=== PATIENT | female | born 1940 | race Caucasian/White ===

== ENCOUNTER 2017-03-19 13:23 | Inpatient (IN) | payer MEDICARE, BC ==
[2017-03-19 14:30] LABS: Bilirubin Negative (Negative); Blood, Urine Negative (Negative); Clarity CLEAR (Clear); Glucose, Urine (Dipstick) Negative (Negative); Leukocyte Trace (Negative); Nitrite Negative (Negative); Protein, Urine (Dipstick) Negative (Neg-Trace); Specific Gravity, Urine 1.006 (1.002-1.036); Urobilinogen 0.2 mg/dL (0.2-1.0); pH, Urine 7.5 (5.0-9.0)
[2017-03-19 14:32] LABS: Bacteria/HPF Rare-Few HPF (None Seen); Hyaline Casts/LPF 0-3 HYALINE CAST LPF (0-3 Hyaline); Pathc Cast-AUWi Flag 0.13 (0-2.49); RBC/HPF 0-3 HPF (0-3); WBC/HPF 0-3 HPF (0-3)
[2017-03-19 14:42] LABS: #Basophils 0.1 thou/uL (0.0-0.2); #Eosinphils 0.4 thou/uL (0.0-0.7); #Lymphocytes 1.8 thou/uL (1.20-3.40); #Monocytes 0.7 thou/uL (0.11-0.59); #Neutrophils 3.2 thou/uL (1.40-6.50); %Basophils 1.1 % (0.0-1.0); %Lymphocytes 29.7 % (21.0-51.0); %Monocytes 11.1 % (0.0-10.0); %Neutrophils 52.1 % (42.0-75.0); Hemoglobin 14.7 g/dL (12.0-16.0); Mean Corpuscular HGB CONC 32.9 g/dL (32.0-36.0); Mean Corpuscular Hemoglobin 31.9 pg (27.0-31.0); Mean Corpuscular Volume 96.7 fl (81.0-99.0); Mean Platelet Volume 7.5 fL (7.4-10.4); Platelet Count 288 thou/uL (130-400); RBC Distribution Width 11.5 % (11.5-14.5); Red Blood Cell (RBC) Count 4.61 mill/uL (4.20-5.40); White Blood Cell (WBC) Count 6.1 thou/uL (4.8-10.8)
[2017-03-19 14:45] LABS: PTT 23.6 SEC (22.9-36.1); Prothrombin Time 13.3 SEC (12.0-14.7)
[2017-03-19 15:00] LABS: ALT (SGPT) 24 U/L (8-55); AST (SGOT) 30 U/L (5-34); Albumin 3.9 g/dL (3.4-4.8); Alkaline Phosphatase 81 U/L (40-150); Anion Gap 17 mmol/L (10-20); BUN (Urea Nitrogen) 11 mg/dL (9.8-20.1); Bilirubin, Total 0.4 mg/dL (0.2-1.2); CK (CPK) 43 U/L (29-168); Calc. Creatinine Clearance 0 mL/min (70-130); Calcium 10.2 mg/dL (7.8-10.44); Carbon Dioxide 20 mmol/L (23-31); Chloride 108 mmol/L (98-107); Estimated GFR-MDRD 73; Globulin 3.2 g/dL (2.4-3.5); Glucose 81 mg/dL (83-110); Potassium 4.7 mmol/L (3.5-5.1); Protein, Total 7.1 g/dL (6.0-8.3); Sodium 140 mmol/L (136-145)
[2017-03-19 15:05] LABS: CKMB 0.6 ng/mL (0-6.6)
[2017-03-19 15:16] LABS: Troponin I Less than 0.010 ng/mL (< 0.028)
--- NOTE | 2017-03-19 15:55 | CT ---
CT BRAIN WITHOUT CONTRAST: HISTORY: Headache. FINDINGS: Comparison is made with the exam of 03/16/2017. No evidence of acute infarct, hemorrhage, midline shift, or abnormal extraaxial fluid collections are seen. The ventricle size is normal, and the basilar cisterns are patent. The bony calvarium is int act. There is mucosal disease in the paranasal sinuses. IMPRESSION: No CT evidence of acute intracranial process. POS: [facility]
--- NOTE | 2017-03-19 15:58 | RAD ---
PORTABLE CHEST ONE VIEW: 03/19/2017 at 2:56 p.m. HISTORY: Altered mental status. FINDINGS: Comparison is made with the exam of 03/16/2017. The heart size is normal. The lungs are expanded without focal areas of consolidation, pneumothorax, or pleural effusions. IMPRESSION: No acute process. POS: [facility]
[2017-03-19] MEDS ORDERED: Acetaminophen 325 MG TAB ONE ×2 (16:42)
[2017-03-19] MEDS ORDERED: diphenhydrAMINE 50 MG CAP PO SCH (17:58)
[2017-03-19] MEDS ORDERED: Ketorolac Tromethamine 30 MG/ML VIAL IVP SCH (17:58)
[2017-03-19] MEDS ORDERED: Promethazine HCl 25 MG/ML VIAL IM/IV SCH (17:58)
[2017-03-19 18:31] VITALS: BMI 31.6
[2017-03-19] MEDS: TROSPIUM 20 MG TABLET PO SCH (20:09)
[2017-03-19] MEDS: Atorvastatin Calcium 40 MG TAB PO SCH (20:11)
[2017-03-19] MEDS ORDERED: Atorvastatin Calcium 40 MG TAB PO SCH (21:00)
[2017-03-20] MEDS ORDERED: hydrOXYzine 25 MG TAB PO SCH (00:19)
--- NOTE | 2017-03-20 00:31 | HP-2 ---
DATE: 03/19/2017 at 1545 hours CODE STATUS: FULL. PRIMARY CARE PHYSICIAN: Katarina schulte. ATTENDING: Howard Chung M.D. RESIDENT: Duong Uribe DO HISTORIAN: The patient. CHIEF COMPLAINT: Headache. HISTORY OF PRESENT ILLNESS: This is a 77-year-old female with chief complaint of a throbbing headache that was onset yesterday evening and woke her up this morning. She has associated blurriness in the left eye. She says it comes in waves, starts behind it, and radiates to the right. She also states that the light hurts her eyes. She was discharged from the hospital 2 days ago where she was diagnosed with a TIA and a subacute lacunar infarct with a deficit on the left side of her face, left-sided numbness and left facial nerve palsy, specifically on the corner of her mouth. In the emergency room, she had a CT brain and chest x-ray, both of which were normal. PAST MEDICAL HISTORY: TIA, lacunar infarct, hypertension, GERD, bladder prolapse. PAST SURGICAL HISTORY: Hysterectomy, left knee arthroscopy. ALLERGIES: TETANUS TOXOID. MEDICATIONS: Lisinopril 10 mg daily, aspirin 81 mg daily, atorvastatin 40 mg daily, Protonix 40 mg b.i.d., Sanctura 60 mg daily. FAMILY HISTORY: CVA. SOCIAL HISTORY: None. ETOH none. Drugs: None. REVIEW OF SYSTEMS: GENERAL: Denies fever, chills, changes in appetite, night sweats. HEENT: Complains of left blurred vision, left eye. EYES: Denies any eye pain. ENT: No nasal congestion, rhinorrhea. RESPIRATORY: Denies cough, congestion, shortness of breath. CARDIOVASCULAR: Denies chest pain or palpitations. GI: Denies nausea, vomiting, diarrhea. GENITOURINARY: Denies incontinence, dysuria. SKIN: Denies any rashes or lesions. MUSCULOSKELETAL: Denies any pain or tenderness. NEUROLOGIC: Has numbness in left cheek and headache. PSYCHIATRIC: Denies anxiety or depression. PHYSICAL EXAMINATION: VITAL SIGNS: Blood pressure 159/74, pulse 71, respiratory rate 18, T-max 97.9, pulse ox 99% on room air, current weight 72.6 kilograms. GENERAL: The patient is alert and oriented x3 in no apparent distress. Well- developed. HEENT: PERRLA, EOM decreased acuity in the left eye. NECK: Supple. CARDIAVASCULAR: Regular rate and rhythm without murmur or gallops. RESPIRATORY: Normal effort. Clear to auscultation bilaterally without retractions. SKIN: Warm and dry. ABDOMEN: Soft, nontender, bowel sounds in all 4 quadrants and without masses or distention. EXTREMITIES: No clubbing or cyanosis. MUSCULOSKELETAL: Structure is normal. Tone is normal . Left cranial nerve 7 deficit when asked to smile. Otherwise, cranial nerves are grossly intact. PSYCHIATRIC: Appropriate. LABORATORY DATA: CBC: Hemoglobin 14.7, hematocrit 44.6, white count 6.1, platelets 288. CMP: Sodium 140, potassium 4.7, chloride 108, bicarbonate 20, BUN 11, creatinine 0.77, glucose 81, calcium 10.2, total serum protein 7.1, albumin 3.9, total bilirubin 0.4, AST 30, ALT 24, alkaline phosphatase 81, GFR 73. CK 43, CK-MB 0.6. Troponins negative. UA specific gravity 1.026, blood negative, protein negative, leukocyte esterase trace, nitrites negative, ketones negative, glucose negative, RBC 0-3, WBC 0-3, bacteria few and with squamous cells 4-6. Chest x-ray is negative. IMAGING: CT brain, no acute pathology. ASSESSMENT AND PLAN: 1. Complicated migraine is the most likely diagnosis, but given the recent lacunar infarct we will observe overnight with q.4 h neuro checks. We will give Toradol, Phenergan, and Benadryl for the headache, order ESR to rule out temporal arteritis. MRI to r/o new CVA 2. Hypertension. Continue lisinopril. Numbers were controlled at home per the log that she had. We will add hydralazine p.r.n. 3. Gastroesophageal reflux disease. Protonix. 4. History of transient ischemic attack and lacunar infarct. Will obs for stroke with neuro checks as above. 5. Deep venous thrombosis prophylaxis, sequential compression devices, encourage ambulation, and Lovenox. MTDD
--- NOTE | 2017-03-20 06:23 | PDOC.FM ---
- Subjective Subjective: Pt doing well today. Headache has improved. There are no new symptoms or progression of symptoms. There were no acute events over night . - Objective MAR Reviewed: Yes Vital Signs & Weight: Vital Signs (12 hours) Temp Pulse Resp BP Pulse Ox 03/19/17 23:40 98.2 F 80 18 122/58 L 95 03/19/17 20:11 97.8 F 65 20 Weight Weight 76.067 kg Result Diagrams: 03/19/17 14:33 03/19/17 14:33 <Duong Uribe - Last Filed: 03/20/17 11:57> - Objective Vital Signs & Weight: Vital Signs (12 hours) Temp Pulse Resp BP Pulse Ox 03/20/17 11:55 97.5 F L 88 16 114/57 L 95 03/20/17 07:58 98.1 F 74 16 127/61 94 L Weight Weight 76.067 kg I&O: 03/19/17 03/20/17 03/21/17 06:59 06:59 06:59 Output Total 1000 Balance -1000 Result Diagrams: 03/19/17 14:33 03/19/17 14:33 <Howard Chung - Last Filed: 03/20/17 13:33> Phys Exam - Physical Examination Constitutional: NAD HEENT: PERRLA, moist MMs Neck: no nodes, no JVD, supple, full ROM Respiratory: clear to auscultation bilateral Cardiovascular: RRR, no significant murmur Gastrointestinal: soft, non-tender, no distention, positive bowel sounds Musculoskeletal: no edema Persistent left sided facial numbness. CN VII deficit on L when she smiles Lymphatic: no nodes Psychiatric: normal affect, A&O x 3 Skin: no rash <Duong Uribe - Last Filed: 03/20/17 11:57> Dx/Plan (1) Complicated migraine Code(s): G43.109 - MIGRAINE WITH AURA, NOT INTRACTABLE, W/O STATUS MIGRAINOSUS Status: Acute (2) Hypertension Code(s): I10 - ESSENTIAL (PRIMARY) HYPERTENSION Status: Chronic QualifierTitle: Hypertension type: essential hypertension Qualified Code( s): I10 - Essential (primary) hypertension (3) Left facial numbness Code(s): R20.0 - ANESTHESIA OF SKIN Status: Chronic (4) GERD (gastroesophageal reflux disease) Code(s): K21.9 - GASTRO-ESOPHAGEAL REFLUX DISEASE WITHOUT ESOPHAGITIS Status: Chronic QualifierTitle: Esophagitis presence: without esophagitis Qualified Code( s): K21.9 - Gastro-esophageal reflux disease without esophagitis - Plan Plan: 1. Complicated migraine - most likely dx given presentation, however continue to monitor dt recent TIA - repeat MRI today shows possible new infarct. Consulted Dr Orozco, will add Plavix - symptoms improved with headache tx 2. Left facial weakness/numbness - persistent deficit after previous lacunar infarct - no change in presentation from previous discharge 3. HTN - controlled on home meds 4. GERD - controlled on home meds <Duong Uribe - Last Filed: 03/20/17 11:57> Attending Addendum - Attending Addendum I personally evaluated the patient and discussed the management with Dr. Uribe. I agree with the History, Examination, Assessment and Plan documented above with any addition or exceptions noted below. She feels better this a.m. -her headache was resolved on awakening but seems to be starting back up again as we speak on rounds. The left visual field defect is less prominent and less hazy. She notes she has been having some difficulty recently with balance and with recent memory. She is very anxious and her daughter at the bedside (who has had a prior dx of a reversible ischemic neurological disorder) seems to share concerns that tend to feed into Mrs. Price concerns. However, the MRI done this morning does show a significant change of new multiple tiny infarcts in the right occiptial lobe / posterior cerebral artery distribution. This likely explains the visual field changes. A: Recent acute vs. subacute Right posterior corpus callosum lacunar infarct. New multiple tiny occipital lobe infarcts. Plan: Dr. Uribe has spoken with Dr. Orozco and he will see Mrs. Price in the morning. We will add Plavix to the Aspirin she is already taking. Await further neurological evaluation and recommendations per Dr Orozco. [facility] <Howard Chung - Last Filed: 03/20/17 13:33>
[2017-03-20] MEDS: TROSPIUM 20 MG TABLET PO SCH ×2 (09:12→21:42)
[2017-03-20] MEDS: Lisinopril 10 MG TAB PO SCH (09:13)
[2017-03-20] MEDS: Enoxaparin Sodium 30 MG/0.3 ML SYRINGE SC SCH (09:13)
[2017-03-20] MEDS: Aspirin 81 mg Enteric Coated Tablet PO SCH (09:13)
--- NOTE | 2017-03-20 11:27 | MRI ---
MRI BRAIN WITH AND WITHOUT CONTRAST: DATE: 03/20/17. HISTORY: A 77-year-old female with stroke symptoms and headache, with hypesthesia of the body, right greater t little left. COMPARISON: 03/17/17. TECHNIQUE: Multiple sequences obtained in axial, sagittal, and coronal planes; pre and post IV injection of gado linium-based contrast agent: 15 mL of MultiHance. FINDINGS: Previously, there was a single punctate tiny acute or subacute lacunar infarction in the right spleni um of the corpus callosum. Now, that lacunar infarction still has restricted diffusion, but the T2 h yperintensity associated with the lesion has become larger, currently approximately 0.7 cm in diamete r. Furthermore, there are multiple new additional small and tiny foci of restricted diffusion in the rig ht occipital lobe, associated with mild T2 hyperintensity. Some of the tiny ones are at the peripher al posterior cortex of the right occipital pole. The others are located more anteriorly. None of th wilma are associated with hemorrhage. The ventricles are normal in size and configuration. There is n o abnormal intraaxial enhancement, mass, mass effect, midline shift, or extraaxial fluid collection. IMPRESSION: Multiple new, acute small and tiny infarctions in the right posterior cerebral artery territory. CODE T TAE Carreno POS: [facility]
[2017-03-20] MEDS ORDERED: Ketorolac Tromethamine 30 MG/ML VIAL IVP SCH (11:30)
[2017-03-20] MEDS ORDERED: Gadobenate Dimeglumine 529 MG/1 ML (20ML VIAL) ONE (17:06)
[2017-03-20] MEDS: Atorvastatin Calcium 40 MG TAB PO SCH (21:42)
--- NOTE | 2017-03-21 05:44 | PDOC.FM ---
- Subjective Subjective: Pt feels better this morning and has improved headache symptoms. She has continued lessened sensation of the left side of her face, but her vision has improved. There were no acute events over night. - Objective MAR Reviewed: Yes Vital Signs & Weight: Vital Signs (12 hours) Temp Pulse Resp BP Pulse Ox 03/21/17 00:50 74 18 114/56 L 03/20/17 20:00 98.4 F 80 18 166/69 H 94 L Result Diagrams: 03/19/17 14:33 03/21/17 05:58 Phys Exam - Physical Examination Constitutional: NAD HEENT: PERRLA, moist MMs Neck: no nodes, no JVD, supple, full ROM Respiratory: clear to auscultation bilateral Cardiovascular: RRR, no significant murmur Gastrointestinal: soft, non-tender, no distention, positive bowel sounds Musculoskeletal: no edema Neurological: moves all 4 limbs Stable changes from previous exam. Lessened sensation on L face. CN7 palsy around corner of L mouth. Lymphatic: no nodes Psychiatric: normal affect, A&O x 3 Skin: no rash Dx/Plan (1) Lacunar infarct, acute Code(s): I63.9 - CEREBRAL INFARCTION, UNSPECIFIED Status: Acute (2) Complicated migraine Code(s): G43.109 - MIGRAINE WITH AURA, NOT INTRACTABLE, W/O STATUS MIGRAINOSUS Status: Acute (3) Hypertension Code(s): I10 - ESSENTIAL (PRIMARY) HYPERTENSION Status: Chronic Qualifiers: Hypertension type: essential hypertension Qualified Code(s): I10 - Essential (primary) hypertension (4) Left facial numbness Code(s): R20.0 - ANESTHESIA OF SKIN Status: Chronic (5) GERD (gastroesophageal reflux disease) Code(s): K21.9 - GASTRO-ESOPHAGEAL REFLUX DISEASE WITHOUT ESOPHAGITIS Status: Chronic Qualifiers: Esophagitis presence: without esophagitis Qualified Code(s): K21.9 - Gastro -esophageal reflux disease without esophagitis - Plan Plan: 1. Lacunar infarct - Per rads read, there are new small lacunar infarcts in the SOIL [employer] distribution. - Neuro has been consulted. Plavix has been started per their recommendation - continue neuro checks - continue ASA and statin - given distribution and number of infarcts will get YEE to evaluate for LA or mitral valve thrombus 2. Migraine - likely assd w/infarcts - symptoms have resolved. - treat with Toradol if needed 3. HTN - controlled on home lisinopril - pt had one elevated BP over night, however not so high that prn meds were needed - pt is complaining of dry cough likely assd with sonu. will switch to losartan today 4. Left facial weakness/numbness - persistent from previous admission - continue to monitor 5. GERD - controlled on home meds
[2017-03-21 06:26] LABS: Anion Gap 10 mmol/L (10-20); BUN (Urea Nitrogen) 12 mg/dL (9.8-20.1); Calc. Creatinine Clearance 77 mL/min (70-130); Calcium 9.1 mg/dL (7.8-10.44); Carbon Dioxide 25 mmol/L (23-31); Chloride 109 mmol/L (98-107); Estimated GFR-MDRD 75; Glucose 93 mg/dL (83-110); Potassium 4.5 mmol/L (3.5-5.1); Sodium 139 mmol/L (136-145)
[2017-03-21] MEDS: Lisinopril 10 MG TAB PO SCH (08:24)
[2017-03-21] MEDS: Clopidogrel Bisulfate 75 MG TAB PO SCH (08:24)
[2017-03-21] MEDS: Enoxaparin Sodium 30 MG/0.3 ML SYRINGE SC SCH (08:25)
[2017-03-21] MEDS: TROSPIUM 20 MG TABLET PO SCH ×2 (08:25→19:56)
[2017-03-21] MEDS: Aspirin 81 mg Enteric Coated Tablet PO SCH (08:25)
--- NOTE | 2017-03-21 11:40 | CON ---
DATE OF CONSULTATION: 03/21/2017 CONSULTING PHYSICIAN: [facility] IMPRESSION: 1. Recurrent ischemia in the right posterior cerebral artery territory with resultant left homonomou s hemianopsia. 2. Intermittent tingling on the left side of the body which may be due to subclinical seizures. 3. Hypertension. 4. Aspirin failure. PLAN: 1. Plavix has been started. 2. Continue aspirin. 3. Change lisinopril to alternative blood pressure medication to alleviate her cough. Ms. Price is a 77-year-old white female who was visiting her daughter from [place]. She develope d neurologic symptoms last week and was admitted for evaluation. She was found to have evidence of a right posterior cerebral artery area of ischemia. She was started on aspirin and a statin. About a month ago she was noted to be hypertensive and was started on medication for this. She returned [place] last week and was staying with her daughter when she had worsening visual field deficits. She was also experiencing intermittent tingling involving the entire left side of the body, which would cross the midline and her facial region. These episodes would last a matter of seconds and then resolved. They were not associated with any alteration of consciousness. It did have a slight impact on her ability to walk. She came in and had a repeat MRI of the brain done which showed some new patchy isc hemia in the right posterior cerebral artery territory. Her CTA did not reveal any stenosis in the e xtracranial vessels. Her echocardiogram showed a normal ejection fraction in the 60-65% range. PAST MEDICAL HISTORY: Hypertension. FAMILY HISTORY: Positive for stroke. SOCIAL HISTORY: No tobacco or alcohol use. REVIEW OF SYSTEMS: Otherwise, unremarkable. PHYSICAL EXAMINATION: GENERAL: She is a well-nourished elderly lady in no distress. HEENT: Pupils equal and reactive. Conjunctivae clear. NECK: Supple. EXTREMITIES: No cyanosis. NEUROLOGIC: She is alert and appropriate. Her speech is fluent and clear. Cranial nerve exam showe d a fairly dense left homonomous hemianopsia. The remainder of her exam was nonfocal. She was able to walk independently. Imaging was reviewed. SUMMARY: This is a 77-year-old woman with hypertension with recurrent ischemia in the same vascular territory suggesting a primary region of thrombosis. She is now on maximum medical therapy. I expla ined to the family that she is not a candidate for t-PA or endovascular treatment. They are a bit ap prehensive about her going home and would be more comfortable if she could be assessed by PT and OT b efjean-claude being discharged. I would be happy to follow up with her as an outpatient.
--- NOTE | 2017-03-21 15:25 | PRG ---
DATE OF SERVICE: 03/21/2017 Ms. Price is a pleasant and very interesting 77-year-old lady who was admitted with MRI evidence of f urther lacunar infarcts in a 3-day period. She had presented with a headache and some facial tinglin g. The recurrent multiple infarcts seemed to follow the posterior cerebral artery distribution. For completeness sake; however, I think we should perform a transesophageal echo to completely rule out the left atrial appendage and mitral valve as possible embolic sources. She may also benefit from an outpatient event recorder to ensure that we are not dealing with intermittent atrial fibrillation. We have added Plavix to her aspirin and statin regimen for TIA/stroke. Will be continued with blood pressure control.
[2017-03-21] MEDS: Atorvastatin Calcium 40 MG TAB PO SCH (19:56)
--- NOTE | 2017-03-21 22:48 | CON ---
DATE OF CONSULTATION: 03/21/2017. INDICATION FOR CONSULTATION: A 77-year-old female with recurrent bouts of CVAs. She has had a recen t apparently multiple small posterior cerebral artery distribution infarcts in the area of the right occipital lobe and we were asked to see her for possible transesophageal echocardiogram as to rule ou t any evidence of a possible cardiac etiology of the recurrent cerebrovascular accidents. HISTORY OF PRESENT ILLNESS: This very pleasant 77-year-old female who except for the above diagnosis , is now having some left homonomous hemianopsia due to the recent CVA. She has, up until this time, been a very healthy person. She says she has noticed some symptoms in the past with blood pressure problems and occasionally down funny stations but cannot specify any particular abnormality. She den ies any previous cardiac history. She has no history of atrial fibrillation or flutter as far as she is aware of. She does have a history of hypertension; however, recently has been having some issues with her blood pressure, but otherwise has been doing quite well. She said that she has noticed kim e left-sided numbness, but this seemed to have improved somewhat, but she in the emergency room was d ocumented as after being admitted, was noted to have with an MRI some abnormalities on the issues as noted. At this time, she is quite comfortable and is discussing the possibility of a transesophageal echocardiogram. Otherwise, she has no further symptoms and has been actually ambulating slightly wi thout any problems. PAST MEDICAL HISTORY: Significant for hypertension, gastroesophageal reflux disease. She has had so me esophageal scarring. She has had a bladder prolapse, TIA, lacunar infarct. She did have a hyster ectomy, left knee arthroscopic surgery. She also had a cardiac catheterization many years ago, but s he does not remember why she had it and apparently did not have any significant abnormalities at that time. ALLERGIES: She is allergic to TETANUS TOXOID. MEDICATIONS: Include lisinopril 10 mg a day, aspirin 81 mg a day, atorvastatin 40 mg a day, Protonix 40 mg b.i.d., Sanctura 60 mg daily. FAMILY HISTORY: Positive for mental abnormalities or psychological problems and also CVA. Her mothe r had bipolar disorder. She has a sister with schizophrenia. SOCIAL HISTORY: She has no alcohol or tobacco abuse. REVIEW OF SYSTEMS: She had no complaints except what was noted in the history of present illness, ot herwise she has remained very healthy. 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 Otherwise, 12-point review of systems is unremarkable except fo r the gastroesophageal reflux and her hypertension. PHYSICAL EXAMINATION: GENERAL: Reveals a very pleasant, well-developed female. VITAL SIGNS: Blood pressure 117/58, heart rate is 84 and regular. She is afebrile, respiratory rate 16. HEENT: Shows the head to be normocephalic and atraumatic. Carotid pulses are present. I did not he ar any bruits. There is no JVD. Thyroid is not enlarged. Oral mucosa was pink and moist. CHEST: Clear to auscultation. There were no rales, rhonchi or wheezing. CARDIOVASCULAR: Exam reveals a regular rate and rhythm. She has a normal S1, S2. There was no S3, S4. There were no significant murmurs, heaves, thrills, bruits or rubs noted. ABDOMEN: Soft and nontender. Positive bowel sounds. No organomegaly or masses were noted. Femoral pulses are present. EXTREMITIES: Showed no clubbing, cyanosis or edema. Pedal pulses are also present. NEUROLOGIC: She does still continue to have some left hemianopsia, otherwise there were gross motor deficits that I had noted. DIAGNOSTIC STUDIES: Her EKG shows a normal sinus rhythm without acute changes. Her laboratory data is unremarkable for any acute process. IMPRESSION: 1. Multiple small posterior cerebral artery distribution, cerebrovascular accidents, which is felt t o be possibly due to embolic phenomenon. I would agree that the patient should undergo a transesopha geal echocardiogram for evaluation to rule out any evidence of intracardiac thrombi or masses and als o to rule out any evidence of patent foramen ovale or atrial septal defect, even though it may be a s mall possibility given her age though she has not had any instances before now; however, we will need to check this out. She will also undergo bubble study at the same time to see if we can elicit any evidence of a patent foramen ovale. Her last echocardiogram which was performed a few days ago while she was in the hospital on 03/17/2017 did not show any evidence of abnormalities. Her ejection frac tion was normal. She also had normal right atrial size and there was no evidence of any irregulariti es or arrhythmias. She did have some trace tricuspid valve and mitral valve regurgitation. No other abnormalities were appreciated. Also given her history this CVA possibly she could benefit from und ergoing implantation of a LINQ which should be an implantable loop recorder which can monitor her for the next 3-4 years in case she does have any episodes of atrial fibrillation though she has been asy mptomatic thus far. At this time, I would agree with anticoagulation in this lady to prevent further embolic phenomenon should she have any small thrombus in the left atrium or left atrial appendage. At this time, she is on aspirin and Plavix as well as Lovenox. I did discuss with her about jennai ng with a transesophageal echocardiogram and she is agreeable to this. I did explain to her the proc edure and the risk. The only concern is that she does have some gastroesophageal reflux disease and had an upper GI endoscopy recently and was told that she did have some scarring in the esophagus, we will need to be very careful not to have to force the probe otherwise we may not be able to pass the probe if she has scarring in the esophagus. In order to have the procedure done, we will try to ensu re that there is no forcing on the transesophageal probe; otherwise, she could develop perforation or laceration on the esophagus. 2. History of hypertension. At this time, the blood pressure is under good control. I will agree w ith the present management. I will be more than happy to continue to follow the patient with you, bu t further recommendations will depend on the transesophageal echocardiogram results and then if this is unremarkable, then I would suggest the patient to undergo implantation of a LINQ implantable loop recorder.
--- NOTE | 2017-03-22 05:46 | PDOC.FM ---
- Subjective Subjective: Pt doing well today. Her headache has not recurred and she has no new neuro symptoms. Her facial numbness comes and goes, but does not worsen. There were no acute events over night. - Objective MAR Reviewed: Yes Vital Signs & Weight: Vital Signs (12 hours) Temp Pulse Resp BP BP Pulse Ox 03/22/17 03:57 98.1 F 67 18 123/79 97 03/22/17 00:29 98.2 F 77 18 129/77 96 03/21/17 20:20 97.4 F L 79 18 135/68 97 Weight Weight 76.067 kg I&O: 03/20/17 03/21/17 03/22/17 06:59 06:59 06:59 Intake Total 970 Balance 970 Result Diagrams: 03/19/17 14:33 03/21/17 05:58 <Duong Uribe - Last Filed: 03/22/17 05:44> - Objective Vital Signs & Weight: Vital Signs (12 hours) Temp Pulse Resp BP BP Pulse Ox 03/22/17 11:43 98.2 F 93 18 151/67 H 98 03/22/17 08:15 98.5 F 73 18 98 03/22/17 07:35 98.5 F 73 18 132/64 98 03/22/17 03:57 98.1 F 67 18 123/79 97 Weight Weight 76.067 kg I&O: 03/21/17 03/22/17 03/23/17 06:59 06:59 06:59 Intake Total 970 Balance 970 Result Diagrams: 03/19/17 14:33 03/21/17 05:58 <Marianna Del Toro - Last Filed: 03/22/17 12:36> Phys Exam - Physical Examination Constitutional: NAD HEENT: PERRLA, moist MMs, sclera anicteric Neck: no nodes, no JVD, supple, full ROM Respiratory: clear to auscultation bilateral Cardiovascular: RRR, no significant murmur Gastrointestinal: soft, non-tender, no distention, positive bowel sounds Musculoskeletal: no edema Neurological: moves all 4 limbs Persistent left face numbness and CN7 deficit, no change Lymphatic: no nodes Psychiatric: normal affect, A&O x 3 Skin: no rash <Duong Uribe - Last Filed: 03/22/17 05:44> Dx/Plan (1) Lacunar infarct, acute Code(s): I63.9 - CEREBRAL INFARCTION, UNSPECIFIED Status: Acute (2) Complicated migraine Code(s): G43.109 - MIGRAINE WITH AURA, NOT INTRACTABLE, W/O STATUS MIGRAINOSUS Status: Acute (3) Hypertension Code(s): I10 - ESSENTIAL (PRIMARY) HYPERTENSION Status: Chronic QualifierTitle: Hypertension type: essential hypertension Qualified Code( s): I10 - Essential (primary) hypertension (4) Left facial numbness Code(s): R20.0 - ANESTHESIA OF SKIN Status: Chronic (5) GERD (gastroesophageal reflux disease) Code(s): K21.9 - GASTRO-ESOPHAGEAL REFLUX DISEASE WITHOUT ESOPHAGITIS Status: Chronic QualifierTitle: Esophagitis presence: without esophagitis Qualified Code( s): K21.9 - Gastro-esophageal reflux disease without esophagitis - Plan Plan: 1. Lacunar infarct - Per rads read, there are new small lacunar infarcts in the [employer] distribution. - Neuro has been consulted. Plavix has been started per their recommendation - continue neuro checks - continue ASA and statin - Pt was seen yesterday by Dr Scanlon and will be scheduled for YEE to evaluate for LA appendage thrombus or PFO 2. Migraine - likely assd w/infarcts - symptoms have resolved. - treat with Toradol if needed 3. HTN - controlled on home lisinopril - pt had one elevated BP over night, however not so high that prn meds were needed - pt is complaining of dry cough likely assd with sonu. will switch to losartan today 4. Left facial weakness/numbness - persistent from previous admission - continue to monitor 5. GERD - controlled on home meds <Duong Uribe - Last Filed: 03/22/17 05:44> Attending Addendum - Attending Addendum I personally evaluated the patient and discussed the management with Dr. Uribe. I agree with the History, Examination, Assessment and Plan documented above with any addition or exceptions noted below. The patient still has tingling in her left hand and a headache. She had a YEE which was negative this morning. Will likely get a loop recorder per cardiology. Will clarify anticoagulation needed upon discharge. <Marianna Del Toro - Last Filed: 03/22/17 12:36>
--- NOTE | 2017-03-22 09:34 | ECHO ---
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 She was advised to undergo a transesophageal echocardiogram to rule out evidence of a patent fo ramen ovale, atrial septal defects, or any intracardiac thrombi or masses that might account for this possible embolization. She was taken to the recovery area where she underwent short acting propofol, and the transesophageal probe was easily passed down the distal esophagus. IMPRESSIONS: 1. Normal left ventricular systolic function, ejection fraction 55-60%. 2. No evidence of left atrial or left atrial appendage thrombus. 3. No evidence of patent foramen ovale. She also underwent a bubble study and with coughing and pre ssure to the hepatic area, and there was still no evidence of bubbles crossed from the right to left side. 4. She has mild mitral valve regurgitation and mild tricuspid valve regurgitation and trivial aortic valve regurgitation. The valvular structures appear to be normal. There is no indication of any cardiac etiology for her CVA. She tolerated the procedure well. There were no difficulties or complications encountered. POS: KAUSHAL
[2017-03-22] MEDS: Clopidogrel Bisulfate 75 MG TAB PO SCH (10:05)
[2017-03-22] MEDS: Enoxaparin Sodium 30 MG/0.3 ML SYRINGE SC SCH (10:05)
[2017-03-22] MEDS: Losartan 25 MG TAB PO SCH (10:05)
[2017-03-22] MEDS: Aspirin 81 mg Enteric Coated Tablet PO SCH (10:05)
[2017-03-22] MEDS: TROSPIUM 20 MG TABLET PO SCH ×2 (10:06→21:43)
[2017-03-22] MEDS ORDERED: Lidocaine 1% PF 5 ML VIAL ONE (17:26)
[2017-03-22] MEDS ORDERED: PROPOFOL 200 MG/20 ML VIAL ONE (17:26)
[2017-03-22] MEDS: Atorvastatin Calcium 40 MG TAB PO SCH (21:43)
[2017-03-23] MEDS: Cepastat Lozenges 1 LOZ PO PRN ×3 (00:38→06:09)
[2017-03-23] MEDS: Acetaminophen 325 MG TAB PO PRN ×3 (00:38→13:36)
--- NOTE | 2017-03-23 05:40 | PDOC.FM ---
- Subjective Subjective: Pt feeling well today. There has been no progression of symptoms or new symptoms. She continues to have persistent numbness/tingling on her left face and hand. There were no acute events over night. - Objective Vital Signs & Weight: Vital Signs (12 hours) Temp Pulse Resp BP Pulse Ox 03/23/17 04:00 97.5 F L 75 16 132/61 90 L 03/22/17 20:13 98.3 F 85 16 136/63 94 L 03/22/17 20:05 98.3 F 85 16 94 L Weight Weight 78.471 kg I&O: 03/21/17 03/22/17 03/23/17 06:59 06:59 06:59 Intake Total 970 Balance 970 Result Diagrams: 03/19/17 14:33 03/21/17 05:58 <Duong Uribe - Last Filed: 03/23/17 11:32> - Objective Vital Signs & Weight: Vital Signs (12 hours) Temp Pulse Resp BP Pulse Ox 03/23/17 07:57 98.3 F 84 16 03/23/17 07:55 98.3 F 84 16 127/61 98 03/23/17 04:00 97.5 F L 75 16 132/61 90 L Weight Weight 78.471 kg I&O: 03/22/17 03/23/17 03/24/17 06:59 06:59 06:59 Intake Total 970 Balance 970 Result Diagrams: 03/19/17 14:33 03/21/17 05:58 <Marianna Del Toro - Last Filed: 03/23/17 13:02> Phys Exam - Physical Examination Constitutional: NAD HEENT: PERRLA, moist MMs Neck: no nodes, no JVD, supple Respiratory: clear to auscultation bilateral Cardiovascular: RRR, no significant murmur Gastrointestinal: soft, non-tender, no distention, positive bowel sounds Musculoskeletal: no edema Neurological: moves all 4 limbs CN V/IIV deficit. No change from previous exam Lymphatic: no nodes Psychiatric: normal affect, A&O x 3 Skin: no rash <Duong Uribe - Last Filed: 03/23/17 11:32> Dx/Plan (1) Lacunar infarct, acute Code(s): I63.9 - CEREBRAL INFARCTION, UNSPECIFIED Status: Acute (2) Complicated migraine Code(s): G43.109 - MIGRAINE WITH AURA, NOT INTRACTABLE, W/O STATUS MIGRAINOSUS Status: Acute (3) Hypertension Code(s): I10 - ESSENTIAL (PRIMARY) HYPERTENSION Status: Chronic QualifierTitle: Hypertension type: essential hypertension Qualified Code( s): I10 - Essential (primary) hypertension (4) Left facial numbness Code(s): R20.0 - ANESTHESIA OF SKIN Status: Chronic (5) GERD (gastroesophageal reflux disease) Code(s): K21.9 - GASTRO-ESOPHAGEAL REFLUX DISEASE WITHOUT ESOPHAGITIS Status: Chronic QualifierTitle: Esophagitis presence: without esophagitis Qualified Code( s): K21.9 - Gastro-esophageal reflux disease without esophagitis - Plan Plan: 1. 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 - Neuro has been consulted. Plavix has been started per their recommendation - continue neuro checks - continue ASA and statin - YEE was negative, schedule for loop placement today - Will work to clarify need for anticoagulation upon discharge dt possible arrhythmia as source of infarcts 2. Migraine - likely assd w/infarcts - symptoms have resolved. - treat with Toradol if needed 3. HTN - controlled on losartan - pt had one elevated BP over night, however not so high that prn meds were needed 4. Left facial weakness/numbness - persistent from previous admission - continue to monitor 5. GERD - controlled on home meds Dispo: likely home today pending Cardiology recommendation <Duong Uribe - Last Filed: 03/23/17 11:32> Attending Addendum - Attending Addendum I personally evaluated the patient and discussed the management with Dr. Uribe. I agree with the History, Examination, Assessment and Plan documented above with any addition or exceptions noted below. The patient had a loop recorder implanted this morning. She was seen sitting up eating breakfast. Will get case management to help arrange home health and pt will likely discharge this afternoon. <Marianna Del Toro - Last Filed: 03/23/17 13:02>
[2017-03-23] MEDS ORDERED: Lidocaine 1% w/Epinephrine 1:200K 30 ML VIAL ONE (07:14)
[2017-03-23] MEDS: Losartan 25 MG TAB PO SCH (09:46)
[2017-03-23] MEDS: Clopidogrel Bisulfate 75 MG TAB PO SCH (09:46)
[2017-03-23] MEDS: TROSPIUM 20 MG TABLET PO SCH (09:46)
[2017-03-23] MEDS: Aspirin 81 mg Enteric Coated Tablet PO SCH (09:46)
[2017-03-23] MEDS: Enoxaparin Sodium 30 MG/0.3 ML SYRINGE SC SCH (09:47)
[2017-03-23 13:21] VITALS: BP 115/59; TEMP 97.9
--- NOTE | 2017-03-23 17:58 | CCL ---
INDICATION FOR PROCEDURE: A 77-year-old female with determine etiology of a CVA. She had a transthoracic echocardiogram which showed no evidence of intracardiac thrombi, masses, atri al septal defect, patent foramen ovale. Given her age and possibility of having intermittent atrial fibrillation which was undiagnosed, she was advised to undergo an implantable loop recorder. This w as performed today without difficulties or complications. She was prepped and draped in sterile fashion. Then, using sterile technique, the Linq implantable l oop recorder from [employer] was implanted on the third and fourth intercostal space without any diffi culties or complications. Good sensing was obtained. The patient tolerated procedure well without di fficulties or complications.
--- NOTE | 2017-03-23 19:33 | DIS-2 ---
DATE OF ADMISSION: 03/19/2017 DATE OF DISCHARGE: 03/23/2016. RESIDENT: Duong Uribe DO ADMITTING ATTENDING: Howard Chung M.D. DISCHARGE ATTENDING: Marianna Del Toro M.D. CONSULTATIONS: Neurology, Dr. Stephen Orozco and Cardiology, Dr. Stephania Scanlon. PROCEDURES: YEE and placement of loop recorder. PRIMARY DIAGNOSIS: Acute cerebral infarct along the distribution of the posterior cerebral artery. SECONDARY DIAGNOSES: Hypertension, urinary incontinence, gastroesophageal reflux disease, and histor y of cerebrovascular accident. DISCHARGE MEDICATIONS: Protonix 40 mg p.o. b.i.d., [place] 60 mg p.o. daily, atorvastatin 40 mg p.o . at bedtime, aspirin 81 mg p.o. daily, losartan 25 mg daily, Clopidogrel 75 mg daily. DISCONTINUED MEDICATIONS: Lisinopril 10 mg p.o. daily. HOSPITAL COURSE: The patient was admitted from the ER after having being recently discharged and marco gnosed with a subacute lacunar infarct. She presented back to the ER 2 days later with worsening sym ptoms and new onset headache. At this point, she had a known left-sided facial deficit and left-side d tingling in her hand. However, her headache and blurry vision were new symptoms. The patient was admitted for observation. A repeat MRI was conducted that showed the original subacute lacunar infar ct in the posterior corpus callosum; however, additional new acute punctate infarcts along the distri bution of the [employer]. Neurology was consulted who saw the patient and determined that it was appropriat e to add Plavix in addition to the statin and aspirin that were previously added. Additionally, Cardiology was consulted in order to help determine etiology of the infarcts. YEE was done to evaluate for possible PFO, atrial appendage or other cardiac source. YEE was negative. Shiraz tionally, a loop recorder was placed to help determine if there was an intermittent arrhythmia that c ould be causing the problem. This will require further follow up. Both procedures were done without complication. Also, during her hospitalization, the patient started to complain of a dry cough. This was attribute d to the newly started CECE inhibitor. CECE inhibitor was discontinued and losartan was started in its place. Her blood pressure remained controlled up on transition to the new medication. 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 DISPOSITION: Stable. DISCHARGE INSTRUCTIONS: 1. Location: Home. 2. Diet: Heart healthy. 3. Activity: ad clau. 4. Followup: Within [address] Scanlon. Follow up within 1 week with a PCP with long-term follow up to be done by her normal PCP in [place], [place].
--- NOTE | 2017-03-26 15:44 | EKG ---
Test Reason : Blood Pressure : / mmHG Vent. Rate : 061 BPM Atrial Rate : 061 BPM P-R Int : 154 ms QRS Dur : 080 ms QT Int : 380 ms P-R-T Axes : 036 051 027 degrees QTc Int : 382 ms Normal sinus rhythm Normal ECG No ST/T wave changes Confirmed by ELIOT KOO DO ([id number]), medical editor INDIRA ANTON ([id number]) on 03/26/2017 3:44:14 PM Referred By: Confirmed By:ELIOT KOO DO
== END 2017-03-23 15:39 | disposition home health service (06) | DRG 42 ==
LOC: ERS 13:23 → 2SW 15:53 → OBSVTOIN 03-20 17:18 → 2SE 03-21 16:49
PROVIDERS: ADMIT Family Medicine; ATTEND Family Medicine
PROC: B24BZZ4 Ultrasonography of Heart with Aorta, Transesophageal (ICD-10-PCS; 2017-03-22)
PROC: 0JH632Z Insertion of Monitoring Device into Chest Subcutaneous Tissue and Fascia, Percutaneous Approach (ICD-10-PCS; principal; 2017-03-23)
DX: I63.531 Cerebral infarction due to unspecified occlusion or stenosis of right posterior cerebral artery (principal); H53.462 Homonymous bilateral field defects, left side; I48.91 Unspecified atrial fibrillation; G51.0 Bell's palsy; F41.9 Anxiety disorder, unspecified; G43.109 Migraine with aura, not intractable, without status migrainosus; R29.810 Facial weakness; I10 Essential (primary) hypertension; R32 Unspecified urinary incontinence; K21.9 Gastro-esophageal reflux disease without esophagitis; Z86.73 Personal history of transient ischemic attack (TIA), and cerebral infarction without residual deficits
CPT/HCPCS: 0042T; 33282; 36415; 36416; 70450; 70496; 70551; 70553; 71010; 80048; 80053; 80061; 81003; 81015; 82553; 84484; 85025; 85610; 85652; 85730; 93005; 93306; 93312; 94760; A4216; A9579; C1764; G0378; G8978-GP-CL; G8979-GP-CJ; G8987-GO-CI; G8987-GO-CJ; G8988-GO-CH; G8988-GO-CI; G8989-GO-CI; G8996-GN-CI; G8996-GN-CJ; G8997-GN-CI; J1650; J1885; J2001; J2550; J2704